=== PATIENT | male | born 1975 | race Caucasian/White ===

== ENCOUNTER 2022-12-22 21:29 | Inpatient (IN) | payer OTHER ==
[~2022-12-22] VITALS: Ht 172.7 cm; Wt 58.5 kg
[2022-12-22 21:37] VITALS: BP 149/85
--- NOTE | 2022-12-22 21:37 | NUR ---
OFFLOADED TO BED 09 BLS RUN
--- NOTE | 2022-12-22 21:39 | NUR ---
patient refusing to answer questions and refusing all care at this time.
--- NOTE | 2022-12-22 21:54 | NUR ---
UA collected and sent to lab
[2022-12-22 21:56] LABS: APPEARANCE,URINE CLEAR (CLEAR); BILIRUBIN,URINE NEGATIVE (NEGATIVE); BLOOD, URINE TRACE-I (NEGATIVE); COLOR,URINE YELLOW (YELLOW); LEUKOCYTE ESTERASE ,URINE NEGATIVE (NEGATIVE); NITRITE, URINE NEGATIVE (NEGATIVE); UGLUCOSE NEGATIVE (NEGATIVE)
[2022-12-22 21:58] LABS: RBC,URINE 0-5 /HPF (0-5)
[2022-12-22] MEDS ORDERED: NACL 0.9% 1,000 ML IV ONE (22:00)
[2022-12-22 22:14] LABS: BARBITURATE, URINE NEGATIVE ng/ml (NEG <=200); BENZODIAZEPINE, URINE NEGATIVE ng/mL (NEG <=200); CANNABINOID, URINE NEGATIVE ng/mL (NEG <=50); COCAINE, URINE NEGATIVE ng/mL (NEG <=300); OPIATE, URINE NEGATIVE ng/mL (NEG <=2000); PHENCYCLIDINE SCREEN,URINE NEGATIVE ng/mL (NEG <=25)
[2022-12-22 22:22] LABS: BASOPHILS % (AUTO) 0.2 % (0.0-2.0); HEMATOCRIT 42.3 % (36-52); HEMOGLOBIN 13.9 g/dL (12.0-18.0); LYMPHOCYTES # (AUTO) 0.9 K/uL (2.0-11.5); LYMPHOCYTES % (AUTO) 5.2 % (20.5-51.1); MEAN CORPUSCULAR HEMOGLOBIN 27 pg (27-31); MEAN CORPUSCULAR HGB CONC 33 g/dL (33-37); MEAN CORPUSCULAR VOLUME 81.7 fL (80-94); MONOCYTES # (AUTO) 1.2 K/uL (0.8-1.0); MONOCYTES % (AUTO) 7.4 % (1.7-9.3); NEUTROPHILS # (AUTO) 14.5 K/uL (1.8-7.7); NEUTROPHILS % (AUTO) 87.2 % (42.2-75.2); PLATELET COUNT (AUTO) 291 K/uL (140-450); RED BLOOD CELL COUNT(AUTO) 5.18 MIL/uL (4.20-6.10); RED CELL DISTRIBUTION WIDTH 15.4 % (11.6-13.7); WHITE BLOOD COUNT (AUTO) 16.6 K/uL (4.8-10.8)
[2022-12-22 22:30] LABS: ALBUMIN 4.2 g/dL (3.4-5.0); ANION GAP 20.1 (8-16); CREATININE 2.4 mg/dL (0.6-1.3); POTASSIUM 4.1 mmol/L (3.5-5.1); TOTAL BILIRUBIN 0.4 mg/dL (0.0-1.0)
--- NOTE | 2022-12-23 01:45 | NUR ---
PATIENT REFUSING TO GIVE NAME. PATIENT IS NODDING YES OR NO BUT WILL NOT SPEAK. Addendum: 12/23/22 at 0147 by GIRMA STU CURTIS AWARE OF PATIENT STATUS
[2022-12-23] MEDS ORDERED: NACL 0.9% 1,000 ML IV ONE (01:55)
[2022-12-23] MEDS ORDERED: SODIUM BICARBONATE 8.4% 100 MEQ in DEXTROSE 5% 1,000 ML IV ONE (02:15)
[2022-12-23] MEDS ORDERED: SODIUM BICARBONATE 8.4% PFS 50 MEQ/50 ML SYR IVP ONE ×3 (02:37→02:50)
--- NOTE | 2022-12-23 03:14 | NUR ---
Patient appears to be awake with eyes opened bed low fowlers. Patient attached to the clinical research monitor. Respirations even and unlabored. Patient continues to be nonverbal. Safety measures are in place.
--- NOTE | 2022-12-23 05:00 | NUR ---
PER NGOZI, PT REFUSED LABS
--- NOTE | 2022-12-23 07:17 | NUR ---
Pt report given to Mine MERCHANT. Transfer of care at this time.
--- NOTE | 2022-12-23 09:15 | NUR ---
Patient does not wish to proceed with Medications ROCEPHIN recommended by DR WASHINGTON . Patient given information related to possible complications, up to and including , which could occur as a result from refusing treatment/test at this time. Patient verbalizes understanding of risks involved from refusing treatment/test. Patient has REFUSED TO sign refusal of treatment form.
--- NOTE | 2022-12-23 10:09 | NUR ---
CALLED DR. CONNELL AND PRESENTED REPORT ABOUT PT. PT. IS REFUSING ALL CARE, MEDICATIONS, ANTIBIOTICS. PT. IS AWAKE AND ALERT. PT. IS NOT RESPONDING ANY QUESTIONS ABOUT ORIENTATION. PT. APPEARS NEURO LOGICALLY INTACT. ABLE TO MOVE ALL EXTREMITES. NO ACUTE DISTRESS. DR. CONNELL STATED THAT SHE WOULD COME TO ER AND EVAL. PT.
--- NOTE | 2022-12-23 10:19 | NUR ---
LAB CALLED ER. PER LAB, PT. IS REFUSING ALL LAB BLOOD DRAWS. LAB WILL CONT. TO HOLD ORDERS AND TRY TO DRAW LABS. PT. WILL BE NOTIFIED. PT.'S PRIMARY RN NOTIFIED
--- NOTE | 2022-12-23 12:10 | NUR ---
OFFERED LUNCH, PT SPOKE HE SAID " I DONT WANT TO EAT". AT TO SPEAK WITH PT , PT REFUSED TO TALK TO THE DOCTOR
--- NOTE | 2022-12-23 12:12 | NUR ---
DR. CONNELL AT BEDSIDE. PT. REFUSED TO TALK TO PT. DR. CONNELL ORDER PT. TO BE DISCHARGED FROM HOSPITAL UNDER AMA CONDITIONS.
--- NOTE | 2022-12-23 13:13 | NUR ---
patient wheeled to CT scan with pattern technician on [place]
[2022-12-23] MEDS ORDERED: cefTRIAXone 1,000 MG VIAL ONE (14:33)
--- NOTE | 2022-12-23 15:57 | NUR ---
Patient will be admitted to care of DR CONNELL. Admited to TELEMETRY. Will go to room 120B. Belongings list completed. Report to MAYUR FRANK.
--- NOTE | 2022-12-23 17:56 | NUR ---
RECEIVED PT FROM ER ALENA RODRIGUEZ AT 1700. PT IS AWAKE, VS STABLE, NOT TALKING BUT SHAKES THE HEAD TO SOME QUESTIONS. FOUND THE WALLET IN HIS POCKET AND IDENTIFIED HIM. INFORMED CHARGE NURSE, AWAITING FOR ADMISSION TO COME AND GET PT'S BELONGINGS FOR SAFE KEEPING. PSYCH CALLED FOR CONSULT BUT LEARNED THAT PT IS NON VERBAL. MD WILL SEE PT ANOTHER TIME.MRSA SWAB DONE. WILL CONTINUE TO MONITOR VS AND LABS FOR PROPER CARE.MNURUM
[2022-12-23] MEDS ORDERED: HYDROcodone/APAP 7.5/325 MG 1 TAB PO PRN (18:25)
[2022-12-23] MEDS ORDERED: ONDANSETRON 4 MG/2 ML VIAL IVP PRN (18:25)
[2022-12-23] MEDS ORDERED: MAG SULF 2000 MG/WATER PREMIX 50 ML IV PRN (18:25)
[2022-12-23] MEDS ORDERED: ACETAMINOPHEN 325 MG TAB PO PRN (18:25)
[2022-12-23] MEDS ORDERED: POTASSIUM CHLORIDE 10 MEQ TABER PO PRN (18:25)
[2022-12-23] MEDS: NACL 0.9% 1,000 ML IV SCH (19:13)
[2022-12-23 19:23] LABS: BASOPHILS % (AUTO) 0.7 % (0.0-2.0); EOSINOPHILS # (AUTO) 0.1 K/uL (0-0.4); EOSINOPHILS % (AUTO) 0.9 % (0.0-4.0); HEMATOCRIT 38.3 % (36-52); HEMOGLOBIN 12.9 g/dL (12.0-18.0); LYMPHOCYTES # (AUTO) 1.8 K/uL (2.0-11.5); LYMPHOCYTES % (AUTO) 24.2 % (20.5-51.1); MEAN CORPUSCULAR HEMOGLOBIN 27 pg (27-31); MEAN CORPUSCULAR HGB CONC 34 g/dL (33-37); MEAN CORPUSCULAR VOLUME 80.4 fL (80-94); MONOCYTES # (AUTO) 0.4 K/uL (0.8-1.0); MONOCYTES % (AUTO) 5.6 % (1.7-9.3); NEUTROPHILS # (AUTO) 5.1 K/uL (1.8-7.7); NEUTROPHILS % (AUTO) 68.6 % (42.2-75.2); PLATELET COUNT (AUTO) 242 K/uL (140-450); RED BLOOD CELL COUNT(AUTO) 4.76 MIL/uL (4.20-6.10); RED CELL DISTRIBUTION WIDTH 15.2 % (11.6-13.7); WHITE BLOOD COUNT (AUTO) 7.5 K/uL (4.8-10.8)
--- NOTE | 2022-12-23 19:32 | NUR ---
ENDORSED PT TO SEISMIC SURVEY ASSISTANT NURSE FOR CONTINUITY OF CARE.PT IS AWAKE AND STABLE, NO SIGNS OF DISTRESS. IV INFUSING ORDERED. PT REFUSED TO USE URINAL AND CONDOM CATHETER. CALL BUTTON WITHIN REACH. MNURUM
[2022-12-23 19:38] LABS: PROTHROMBIN TIME 10.3 secs (10.8-13.4)
[2022-12-23 19:52] LABS: AMYLASE 82 U/L (25-115); CHOL/HDL RATIO 2.1 (1-4.5); FREE T4 (FREE THYROXINE) 0.83 ng/dL (0.76-1.46); HDL CHOLESTEROL 79 mg/dL (40-60); LDL (CALC) 82 mg/dL (60-100); LIPASE 61 U/L (73-393); TRIGLYCERIDES 43 mg/dL (30-150)
[2022-12-23 20:00] VITALS: BP 117/70
--- NOTE | 2022-12-23 20:00 | NUR ---
ASSUMED CARE OF PATIENT AT THIS TIME. PATIENT IS AWAKE AND NON RESPONSIVE. PATIENT NOT RESPONDING TO VERBAL OR TACTILE STIMULI. PATIENT NOT MOVING BUE OR BLE. VSS. AFEBRILE. RESPIRATIONS EVEN AND UNLABORED. NO SOB NOTED. 02 SAT 96% ON ROOM AIR. IVF INFUSING WITH NO REDNESS OR IRRITATION NOTED. NO ACUTE DISTRESS NOTED. WILL CONTINUE TO MONITOR FOR SAFETY. Sherrell MATOS RN.
[2022-12-23] MEDS: DOCUSATE SODIUM 100 MG GELCAP PO SCH (21:00)
[2022-12-23 22:27] LABS: ANION GAP 13.7 (8-16); CREATININE 0.9 mg/dL (0.6-1.3); POTASSIUM 3.7 mmol/L (3.5-5.1)
[2022-12-24] VITALS: BP 115/69
[2022-12-24 04:00] VITALS: BP 102/69
--- NOTE | 2022-12-24 06:00 | NUR ---
PHOSPHORIC ACID OPERATOR STATES PATIENT REFUSED AM LABS. DR. CONNELL CALLED TO BE NOTIFIED. Sherrell MATOS RN.
[2022-12-24 08:00] VITALS: BP 118/78
[2022-12-24 08:21] LABS: BASOPHILS # (AUTO) 0.1 K/uL (0.00-0.22); BASOPHILS % (AUTO) 1.1 % (0.0-2.0); EOSINOPHILS # (AUTO) 0.1 K/uL (0-0.4); EOSINOPHILS % (AUTO) 1.1 % (0.0-4.0); HEMATOCRIT 40.5 % (36-52); HEMOGLOBIN 13.4 g/dL (12.0-18.0); LYMPHOCYTES # (AUTO) 1.1 K/uL (2.0-11.5); LYMPHOCYTES % (AUTO) 13.8 % (20.5-51.1); MEAN CORPUSCULAR HEMOGLOBIN 27 pg (27-31); MEAN CORPUSCULAR HGB CONC 33 g/dL (33-37); MEAN CORPUSCULAR VOLUME 81.2 fL (80-94); MONOCYTES # (AUTO) 0.3 K/uL (0.8-1.0); MONOCYTES % (AUTO) 3.7 % (1.7-9.3); NEUTROPHILS # (AUTO) 6.2 K/uL (1.8-7.7); NEUTROPHILS % (AUTO) 80.3 % (42.2-75.2); PLATELET COUNT (AUTO) 244 K/uL (140-450); RED BLOOD CELL COUNT(AUTO) 4.99 MIL/uL (4.20-6.10); RED CELL DISTRIBUTION WIDTH 15.9 % (11.6-13.7); WHITE BLOOD COUNT (AUTO) 7.7 K/uL (4.8-10.8)
[2022-12-24 08:38] LABS: MAGNESIUM 1.9 mg/dL (1.8-2.4); PHOSPHORUS 3.6 mg/dL (2.5-4.9)
[2022-12-24 08:46] LABS: ANION GAP 12.9 (8-16); CARBON DIOXIDE 26.4 mmol/L (21-32); CREATININE 0.8 mg/dL (0.6-1.3); POTASSIUM 4.3 mmol/L (3.5-5.1)
[2022-12-24] MEDS: DOCUSATE SODIUM 100 MG GELCAP PO SCH ×2 (09:00→20:35)
[2022-12-24] MEDS: PANTOPRAZOLE 40 MG INJ VIAL IVP SCH (09:00)
--- NOTE | 2022-12-24 10:32 | NUR ---
PATIENT HAS BEEN SCREENED AND CATEGORIZED LOW NUTRITION RISK. PATIENT WILL BE SEEN WITHIN 7 DAYS OF ADMISSION. 12/30/22 REVIEWED BY NORA JUARE[address] RD
--- NOTE | 2022-12-24 11:10 | NUR ---
DC PLANNING ATTEMPTED TO MEET PT AT BEDSIDE TO COMPLETE ASSESSMENT HOWEVER, PT REFUSED TO PARTICIPATE. THOROUGHLY EXPLAINED MY ROLE AND REQUESTED IF PT WOULD LIKE FOR SW TO CALL FAMILY, PT SHOOK HIS HEAD. PT WOULD NOT RESPOND TO SW PROMPTS. ENCOURAGED PT TO NOTIFY NURSE IF HE'D LIKE TO SPEAK WITH SW WHEN READY.
[2022-12-24 12:00] VITALS: BP 120/69
[2022-12-24] MEDS: NACL 0.9% 1,000 ML IV SCH (14:25)
--- NOTE | 2022-12-24 15:47 | NUR ---
DC PLANNIN YRS OLD MALE PATIENT WAS ADMITTED FROM ER WITH A DX OF ARETHA. PATIENT HAS UNKNOWN MEDICAL HISTORY. PATIENT NON-VERBAL UNCOOPERATIVE SINCE ARRIVAL. WBC ON ARRIVAL 16.6 +FOR METHS. CT HEAD STUDY WAS SIGNIFICANTLY LIMITED BY MOTION ARTIFACTS. RAPID COVID TEST NEGATIVE. ADMINISTERED IVF AND IV ABX ROCEPHIN. CONSULTED WITH NEPHRO AND PSYCH. MAGNETIC DOCTOR TO EVALUATE PATIENT. CM TO FOLLOW
[2022-12-24 16:00] VITALS: BP 119/77
--- NOTE | 2022-12-24 19:08 | NUR ---
RECEIVED REPORT FROM DAY SHIFT NURSE FOR CONTINUITY OF CARE. PT IS AWAKE, ALERT AND ORIENTED X4 BUT IS NONVERBAL AND NON-COOPERATIVE. PT REFUSED TO HAVE IV FLUIDS HOOKED UP TO IV SITE. CURRENTLY ON ROOM AIR WITH NO SIGNS OF DISTRESS NOTED. WHEN ASKED IF IN ANY PAIN, PT SHOOK HIS HEAD NO. ENCOURAGED PT TO USE CALL LIGHT IF ANY ASSISTANCE WAS REQUIRED. CALL LIGHT WITHIN REACH, SAFETY MEASURES IN PLACE. WILL MAKE FREQUENT ROUNDS THROUGHOUT SHIFT.
[2022-12-24 20:00] VITALS: BP 116/78
--- NOTE | 2022-12-24 21:00 | NUR ---
PT REFUSED SCHEDULED MEDICATIONS. EXPLAINED TO PT THE RISKS OF REFUSING AND THE BENEFITS OF TAKING PRESCRIBED MEDICATIONS. PT STILL REFUSED. WILL CONTINUE TO MONITOR FREQUENTLY.
[2022-12-25] VITALS: BP 116/72
--- NOTE | 2022-12-25 01:08 | NUR ---
PT ASLEEP AT THIS TIME. EVEN CHEST RISE AND FALL, RESPIRATIONS EVEN AND UNLABORED. WILL CONTINUE MONITORING THE PT.
--- NOTE | 2022-12-25 04:09 | NUR ---
PT REFUSED 0400 VITAL SIGNS. NO SIGNS OF ACUTE DISTRESS NOTED. FLACC SCALE- 0.
[2022-12-25 07:04] LABS: BASOPHILS % (AUTO) 0.6 % (0.0-2.0); EOSINOPHILS # (AUTO) 0.4 K/uL (0-0.4); EOSINOPHILS % (AUTO) 4.5 % (0.0-4.0); HEMATOCRIT 41.6 % (36-52); HEMOGLOBIN 13.9 g/dL (12.0-18.0); LYMPHOCYTES # (AUTO) 1.5 K/uL (2.0-11.5); LYMPHOCYTES % (AUTO) 18.6 % (20.5-51.1); MEAN CORPUSCULAR HEMOGLOBIN 27 pg (27-31); MEAN CORPUSCULAR HGB CONC 33 g/dL (33-37); MEAN CORPUSCULAR VOLUME 81.1 fL (80-94); MONOCYTES # (AUTO) 0.3 K/uL (0.8-1.0); MONOCYTES % (AUTO) 4.2 % (1.7-9.3); NEUTROPHILS # (AUTO) 5.8 K/uL (1.8-7.7); NEUTROPHILS % (AUTO) 72.1 % (42.2-75.2); PLATELET COUNT (AUTO) 263 K/uL (140-450); RED BLOOD CELL COUNT(AUTO) 5.13 MIL/uL (4.20-6.10); WHITE BLOOD COUNT (AUTO) 8.1 K/uL (4.8-10.8)
--- NOTE | 2022-12-25 07:06 | NUR ---
PT SLEPT WELL THROUGHOUT SHIFT. ENDORSED TO DAY SHIFT NURSE IN STABLE CONDITION.
[2022-12-25 07:08] LABS: MAGNESIUM 1.9 mg/dL (1.8-2.4); PHOSPHORUS 3.8 mg/dL (2.5-4.9)
[2022-12-25 07:09] LABS: ANION GAP 14.9 (8-16); CREATININE 0.9 mg/dL (0.6-1.3); POTASSIUM 3.9 mmol/L (3.5-5.1)
--- NOTE | 2022-12-25 07:10 | NUR ---
RECEIVED PATIENT FROM PM NURSE FOR CONTIUATION OF CARE. PATIENT PLAN OF CARE REVIEWED AND PATIENT CARE RESUMED
[2022-12-25 08:00] VITALS: BP 105/59
--- NOTE | 2022-12-25 08:37 | NUR ---
PT. WITH LOW SALINA SCALE AT MODERATE TO HIGH RISK, CONTINUE TO FOLLOW PRESSURE INJURY PREVENTION INTERVENTIONS. -POSITIONING: TURN AND REPOSITION PATIENT Q 2H OR SOONER USE PILLOWS TO KEEP BONY PROMINENCES FROM DIRECT CONTACT WITH SURFACES USE REPOSITIONING WEDGES TO PROVIDE 30-DEGREE ANGLE FOR SIDE LYING POSITIONS OFFLOADING OR FOAM DRESSING TO ALL TUBING TO PREVENT MEDICAL DEVICES RELATED PRESSURE INJURY -RE-EVALUATING AND MANAGING INCONTINENCE MONITOR SKIN CONDITION DURING POSITION CHANGE DO NOT MASSAGE REDNESS, BONY PROMINENCES FREQUENT RYLEE-CARE AND PROVIDE BARRIER CREAMS PRN IF SOILING MOISTURE CONTROL BY OFFER BED BRADLEY/URINAL /ABSORBENT PAD TO WICK AND HOLD MOISTURE KEEP SKIN DRY AND PROTECT FROM FRICTION -MANAGE FRICTION/SHEAR/MOBILITY KEEP HOB AT THE LOWEST LEVEL OF ELEVATION NO MORE THAN 30 DEGREE UNLESS OTHERWISE CONTRAINDICATED USE LIFT SHEET OR TRANSFER DEVICE TO MOVE PATIENT AND PREVENT LATERAL SHEER. PROTECT HEELS, ELBOWS BONY PROMINENCES WITH SKIN BERRIES OR FOAM DRESSING IF EXPOSED TO FRICTION OFFLOAD BILATERAL HEELS BY PLACING PILLOWS UNDER CALVES AT ALL TIMES, UNLESS OTHERWISE CONTRAINDICATED -PRESSURE REDISTRIBUTION SURFACE THERAPY ANKIT ISOFLEX MATTRESS -NUTRITION: PLEASE FOLLOW RD RECOMMENDATIONS AND OFFER NUTRITION SUPPLEMENTS IF ORDERED. PLEASE CONTACT WOUND CARE NURSE FOR ANY QUESTION AND CHANGE OF WOUND CONDITION.
--- NOTE | 2022-12-25 09:15 | NUR ---
RECEIVED PATIENT FROM PM NURSE FOR CONTINUATION OF CARE. PATIENT SEEN WITH FISHER NET PERFORMING VITAL SIGNS. PATIENT IS NOW ABLE TO TALK.
--- NOTE | 2022-12-25 09:18 | NUR ---
PATIENT SEEN BY MD. NEW ORDERS GIVEN.
[2022-12-25] MEDS: PANTOPRAZOLE 40 MG INJ VIAL IVP SCH (09:22)
[2022-12-25] MEDS: DOCUSATE SODIUM 100 MG GELCAP PO SCH (09:22)
[2022-12-25] MEDS: NACL 0.9% 1,000 ML IV SCH (10:25)
[2022-12-25 12:00] VITALS: BP 105/59
[2022-12-25 16:00] VITALS: BP 104/62
[2022-12-25 17:30] VITALS: BP 104/62
--- NOTE | 2022-12-26 10:59 | NUR ---
CALLED DR ELINA DUNLAP LOCATED AT [address] [place] [address] [id number] [place] [id number]. SPOKE WITH DARRYL WHO INFORMED ME THAT THE OFFICE DOESN'T MAKE APPOINTMENTS THE CLINIC IS A WALK IN CLINIC. CALLED PATIENT CONTACT NUMBERS BUT NONE WORK VOICE PROMPT SAYS OUT OF SERVICE.
== END 2022-12-25 18:15 | disposition home or self-care (01) | DRG 52 ==
LOC: MED 21:29 → EDBD 12-23 01:53 → MTU 12-23 01:53
PROVIDERS: ADMIT Internal Medicine; ATTEND Internal Medicine
DX: G93.41 Metabolic encephalopathy (principal); N17.9 Acute kidney failure, unspecified; E87.20 Acidosis, unspecified; Z20.822 Contact with and (suspected) exposure to COVID-19; F15.10 Other stimulant abuse, uncomplicated; R73.9 Hyperglycemia, unspecified; D72.829 Elevated white blood cell count, unspecified
CPT/HCPCS: 36415; 70450; 80048; 80053; 80305; 81001; 82140; 82150; 83036; 83605; 83690; 83735; 83880; 84100; 84439; 84443; 84484; 85025; 85610; 85730; 87040; 87081; 96374; 99285; C9113; J0696; J1644; J3490; J7060